=== PATIENT | male | born 1985 | race Caucasian/White ===

== ENCOUNTER 2020-11-19 16:35 | Inpatient (IN) | payer OTHER ==
[2020-11-19] MEDS ORDERED: NALOXONE (NARCAN) HCL 4 MG/0.1 ML SPRAY NS PRN (20:47)
[2020-11-19] MEDS ORDERED: cloNIDine HCL 0.1 MG TABLET PO PRN (20:47)
[2020-11-19] MEDS ORDERED: DICYCLOMINE HCL 10 MG CAPSULE PO PRN (20:47)
[2020-11-19] MEDS ORDERED: ACETAMINOPHEN 325 MG TABLET (FP) PO PRN ×2 (20:47)
[2020-11-19] MEDS ORDERED: NALOXONE HCL 0.4 MG/ML VIAL IM PRN (20:47)
[2020-11-19] MEDS ORDERED: MAG HYDROX/AL HYDROX/SIMETH 30 ML UNIT-DOSE CUP PO PRN (20:47)
[2020-11-19] MEDS ORDERED: METHOCARBAMOL 500 MG TABLET PO PRN (20:47)
[2020-11-19] MEDS ORDERED: IBUPROFEN 400 MG TABLET (FP) PO PRN (20:47)
[2020-11-19] MEDS ORDERED: BISMUTH SUBSALICYLATE 524 MG/30 ML UD PO PRN (20:47)
[2020-11-19] MEDS ORDERED: NICOTINE POLACRILEX 2 MG GUM BUC PRN (20:47)
[2020-11-19] MEDS ORDERED: MAGNESIUM HYDROX 2400MG/30ML ORAL SUSPENSION 30 ML CUP PO PRN (20:47)
[2020-11-19] MEDS ORDERED: hydrOXYzine PAMOATE 25 MG CAPSULE (FP) PO PRN (20:47)
[2020-11-19] MEDS ORDERED: ONDANSETRON *ODT* 4 MG TABLET SL PRN (20:47)
[2020-11-19] MEDS ORDERED: guaiFENesin 200 MG/10 ML 10 ML UNIT-DOSE CUPS PO PRN (20:47)
[2020-11-19] MEDS ORDERED: MENTHOL/PHENOL 1 EACH UD MM PRN (20:47)
[2020-11-19] MEDS ORDERED: P-EPHED 60MG/TRIPROLIDI 2.5MG TABLET PO PRN (20:47)
[2020-11-19] MEDS ORDERED: MAGNESIUM CITRATE 300 ML BOTTLE PO PRN (20:47)
[2020-11-19 21:26] VITALS: BMI 32.5
[2020-11-19] MEDS ORDERED: METHADONE HCL 10 MG TABLET (FOR DETOX USE ONLY) PO ONE (21:45)
[2020-11-19] MEDS: diazePAM 5 MG TABLET PO SCH (23:21)
[2020-11-19] MEDS: MELATONIN 5 MG TABLETS PO SCH (23:22)
[2020-11-19] MEDS: THIAMINE HCL 100 MG TABLET (FP) PO SCH (23:25)
[2020-11-20] MEDS: diazePAM 5 MG TABLET PO SCH ×3 (06:07→17:39)
[2020-11-20] MEDS ORDERED: METHADONE HCL 5 MG TABLET (FOR DETOX USE ONLY) ONE (08:51)
[2020-11-20] MEDS ORDERED: METHADONE HCL 10 MG TABLET (FOR DETOX USE ONLY) ONE (08:52)
[2020-11-20 09:49] LABS: HEMATOCRIT 35.6 % (35.4-49); MCH 28.3 pg (25.7-33.7); MCHC 33.8 g/dl (32.0-35.9); MEAN CELL VOLUME 83.8 fl (80-96); PLATELET COUNT 240 K/MM3 (134-434); RBC 4.25 M/mm3 (4.00-5.60); RDW 14.7 % (11.9-15.9); WHITE BLOOD COUNT 6.4 K/mm3 (4.0-10.0)
[2020-11-20] MEDS ORDERED: METHADONE (DETOX) 20 MG, METHADONE (DETOX) 5 MG PO ONE (10:00)
[2020-11-20] MEDS ORDERED: DICYCLOMINE HCL 10 MG CAPSULE PO ONE (10:17)
[2020-11-20 10:21] LABS: ALBUMIN 2.8 g/dl (3.4-5.0); BLOOD UREA NITROGEN 10.5 mg/dL (7-18); CALCIUM 8.6 mg/dL (8.5-10.1)
[2020-11-20 10:24] LABS: CREATININE 0.6 mg/dL (0.55-1.3)
[2020-11-20 10:25] LABS: BILIRUBIN,TOTAL 0.5 mg/dL (0.2-1); TOT PROT 6.1 g/dl (6.4-8.2)
[2020-11-20] MEDS: NICOTINE 21 MG/24 HOURS TOPICAL PATCH TD SCH (10:27)
[2020-11-20] MEDS: PRENATAL VITAMINS W/ FOLIC ACID TABLET (FP) PO SCH (10:27)
[2020-11-21] MEDS: MELATONIN 5 MG TABLETS PO SCH (00:07)
[2020-11-21] MEDS: THIAMINE HCL 100 MG TABLET (FP) PO SCH (00:07)
[2020-11-21] MEDS: diazePAM 5 MG TABLET PO SCH ×3 (00:07→13:47)
[2020-11-21] MEDS: diazePAM 5 MG TABLET PO PRN ×2 (09:05→18:47)
[2020-11-21] MEDS ORDERED: METHADONE HCL 10 MG TABLET (FOR DETOX USE ONLY) PO ONE (10:00)
[2020-11-21] MEDS: PRENATAL VITAMINS W/ FOLIC ACID TABLET (FP) PO SCH (10:32)
[2020-11-21] MEDS: NICOTINE 21 MG/24 HOURS TOPICAL PATCH TD SCH (10:58)
[2020-11-22] MEDS: MELATONIN 5 MG TABLETS PO SCH (00:58)
[2020-11-22] MEDS: THIAMINE HCL 100 MG TABLET (FP) PO SCH (00:58)
[2020-11-22] MEDS: diazePAM 5 MG TABLET PO SCH (00:58)
[2020-11-22] MEDS ORDERED: diazePAM 5 MG TABLET PO SCH (06:00)
[2020-11-22 07:18] VITALS: BP 128/66; PULSE 76; TEMP 96.8
[2020-11-22] MEDS ORDERED: METHADONE (DETOX) 10 MG, METHADONE (DETOX) 5 MG PO ONE (10:00)
[2020-11-23] MEDS ORDERED: diazePAM 5 MG TABLET PO ONE (06:00)
[2020-11-23] MEDS ORDERED: METHADONE HCL 10 MG TABLET (FOR DETOX USE ONLY) PO ONE (10:00)
[2020-11-24] MEDS ORDERED: METHADONE HCL 5 MG TABLET (FOR DETOX USE ONLY) PO ONE (06:00)
== END 2020-11-22 09:25 | disposition left against medical advice (07) | DRG 770 ==
LOC: YASAS 16:35 → Y6N 21:28
PROVIDERS: ADMIT Allergy & Immunology; ATTEND Allergy & Immunology
PROC: HZ2ZZZZ Detoxification Services for Substance Abuse Treatment (ICD-10-PCS; principal; 2020-11-19)
DX: F11.23 Opioid dependence with withdrawal (principal); F10.230 Alcohol dependence with withdrawal, uncomplicated; F14.20 Cocaine dependence, uncomplicated; F15.10 Other stimulant abuse, uncomplicated; F17.210 Nicotine dependence, cigarettes, uncomplicated; F31.9 Bipolar disorder, unspecified; F42.4 Excoriation (skin-picking) disorder; B18.2 Chronic viral hepatitis C; G40.909 Epilepsy, unspecified, not intractable, without status epilepticus; K51.90 Ulcerative colitis, unspecified, without complications; R63.8 Other symptoms and signs concerning food and fluid intake; R45.89 Other symptoms and signs involving emotional state; Z91.013 Allergy to seafood
CPT/HCPCS: 36415; 80053; 85027; 86780; 93005; 93010; C9803; J0735; U0003; U0005